=== PATIENT | female | born 1965 | race Asian ===

== ENCOUNTER → 2019-12-10 | Day surgery (SDC) | payer OTHER ==
--- NOTE | 2019-12-13 14:11 | OP ---
DATE OF OPERATION: 12/10/2019 PREOPERATIVE DIAGNOSIS: Right breast mass, 2 o'clock, 6 cm from the nipple. POSTOPERATIVE DIAGNOSIS: Right breast mass, 2 o'clock, 6 cm from the nipple. PROCEDURE: Right breast ultrasound-guided core biopsy with clip placement. ANESTHESIA: Local. ATTENDING SURGEON: Pato Velasquez MD ESTIMATED BLOOD LOSS: Minimal. COMPLICATIONS: None. PROCEDURE: Patient was made aware of the risks and benefits of the procedure and consented. She was placed in the supine position and under sterile conditions with 2% lidocaine for local anesthesia a small juliette was made in the skin. Using a 10-gauge suction biopsy device via lateral approach under ultrasound guidance multiple cores were obtained and submitted to Pathology. Likewise, under ultrasound guidance a U-shaped clip was placed into the biopsy region. Well tolerated by patient. Steri-Strip and a sterile bandage were applied. We will contact her with the results. PATO VELASQUEZ M.D. [id number]
--- NOTE | 2019-12-13 14:39 | PATH ---
Surgical Pathology Report Patient Name: FOZIA VARGAS [facility]. Rec. #: [id number] /Age/Gender: 1965 (Age: 54) / F Account: [id number] Location: [facility] Taken: 12/10/2019 Received: 12/10/2019 Reported: 12/13/2019 Physicians: Pato Velasquez M.D. Specimen(s) Received RIGHT BREAST 2:00 6 CM FN CORE BX Clinical History Non-palpable lesion Ultrasound findings: Highly suspicious/malignant Final Diagnosis BREAST, RIGHT, 2:00, 6 CM FN, CORE BIOPSY: FIBROADENOMA. Electronically Signed Melissa Li M.D. Gross Description Received in formalin labeled "right breast 2:00, 6 cmfn," is a 1.7 x 1.1 x 0.3 cm aggregate of multiple fowler-yellow, irregular to cylindrical portions of fibroadipose tissue. The formalin is filtered and the specimen is entirely submitted in one cassette. Time to formalin fixation: Not given Total formalin fixation time rest: Approximately 6 hours /12/10/2019 saudi/12/10/2019
== END | disposition home or self-care (01) ==
LOC: FRADUS-SUR 14:22
PROVIDERS: ATTEND Surgery Surgical Oncology
PROC: 0HBT3ZX Excision of Right Breast, Percutaneous Approach, Diagnostic (ICD-10-PCS; principal; 2019-12-10)
DX: D24.1 Benign neoplasm of right breast (principal); N63.12 Unspecified lump in the right breast, upper inner quadrant
CPT/HCPCS: 19083; 77065-TC; 88305-TC